=== PATIENT | female | born 2000 | race African-American/Black ===

== ENCOUNTER 2022-01-18 18:51 | Emergency (ER) | payer SELFPAY ==
[2022-01-18 18:57] VITALS: BP 124/86; PULSE 96; RESP 20; TEMP 36.3; O2SAT 100
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
--- NOTE | 2022-01-18 19:20 | ECG_ITS ---
Measurements Intervals [place] Rate: 95 P: 72 PA: 129 QRS: 50 QRSD: 81 T: 37 QT: 332 QTc: 417 Interpretive Statements SINUS RHYTHM NO PREVIOUS ECG AVAILABLE FOR COMPARISON Electronically Signed On 01-18-2022 20:00:46 CDT by Britany Cordero M.D.
[2022-01-18 19:53] LABS: Basophils Absolute Auto 0.1 K/mm3 (0.0-0.1); Basophils Percent Auto 0.7 % (0.2-1.2); Eosinophils Percent Auto 0.6 % (0-4.4); Hematocrit 30.6 % (37.0-47.0); Hemoglobin 9.7 g/dL (12.0-15.0); Immature Granulocyte Absolute 0.01 K/mm3 (0.00-0.031); Immature Granulocyte Percent A 0.1 % (0-0.5); Lymphocytes Percent Auto 29.6 % (18.3-44.2); Mean Corpuscular HGB Conc 31.7 g/dl (32-36); Mean Corpuscular Hemoglobin 20.5 pg (26-34); Mean Corpuscular Volume 64.7 fl (80-100); Mean Platelet Volume 9.6 fl (7.4-10.4); Monocytes Absolute Auto 0.5 K/mm3 (0.1-0.6); Monocytes Percent Auto 7.7 % (2.6-8.5); Neutrophils Absolute Auto 4.1 K/mm3 (1.3-6.7); Neutrophils Percent Auto 61.3 % (45.5-73.1); Platelet Count Result 388 k/mm3 (150-375); Red Blood Count 4.73 M/mm3 (4.2-5.4); Red Cell Distribution Width 17.7 % (11.5-14.5); White Blood Count 6.8 K/mm3 (4.5-10.0)
[2022-01-18 19:59] LABS: Add Urine Microscopic? YES; Appearance Urine Cloudy (Clear); Bacteria Urine Trace /hpf; Bilirubin Urine Negative (Negative); Blood Urine 1+ (Negative); Color Urine Yellow (Yellow); Glucose Urine UA Negative (Negative); Ketones Urine Negative (Negative); Leukocyte Esterase Ur Negative LEU/UL (Negative); Mucus Urine Rare /lpf; Nitrate Urine Negative (Negative); Protein Urine Negative (Negative); RBC Urine 0-2 /hpf (0-2); Specific Grav Ur 1.019 (1.001-1.035); Squamous Epithelial Cell Urine Many /hpf (Few); Urobilinogen Urine Negative mg/dL (<2.0); WBC Urine 0-3 /hpf
[2022-01-18 20:06] LABS: Acetaminophen < 10 ug/mL (10-30); Ethanol 36 mg/dL (<10); Salicylate < 1.0 mg/dL (2-20)
[2022-01-18 20:07] LABS: Anion Gap 11 mmol/L (8-16); Blood Urea Nitrogen 8 mg/dL (7-17); Calcium 8.8 mg/dL (8.4-10.2); Carbon Dioxide 24 mmol/L (22-30); Chloride 107 mmol/L (98-107); Estimated CRCL calculation 111 ml/min; Estimated Glomerular Filt Rate > 60; Glucose 105 mg/dL (65-110); Potassium 3.6 mmol/L (3.4-5.0); Sodium 142 mmol/L (137-145)
[2022-01-18 20:08] LABS: Anisocytosis 2+ (NORMAL); Hypochromasia 1+ (NORMAL)
[2022-01-18 20:09] LABS: Schistocytes None Seen (NORMAL)
[2022-01-18 20:12] LABS: Amphetamine Screen Urine Negative (Negative); Barbiturate Screen Urine Negative (Negative); Benzodiazepines Screen Urine Negative (Negative); Cannabinoid Screen Urine Negative (Negative); Cocaine Screen Urine Negative (Negative); Methadone Screen Urine Negative (Negative); Opiate Screen Urine Negative (Negative); Phencyclidine Screen Urine Negative (Negative)
[2022-01-18 20:31] LABS: SARS-CoV-2 RNA PCR Negative
--- NOTE | 2022-01-18 21:28 | PC.NURSE ---
Crisis called at this time and spoke with Linda. She reported that counselor will be out and itll be soon.
--- NOTE | 2022-01-18 21:31 | PC.NURSE ---
Alondra Cox called back and reported to called [facility] since its [facility] confirmed number and will call [facility] [phone]
--- NOTE | 2022-01-18 21:59 | PC.NURSE ---
PERNELL called at this time.
--- NOTE | 2022-01-18 22:33 | PC.NURSE ---
Pau, with [facility], called with ETA of 30 minutes.
--- NOTE | 2022-01-18 23:22 | PC.NURSE ---
Crisis counselor at bedside at this time.
[2022-01-19 00:11] VITALS: BP 121/83; PULSE 85; RESP 16; TEMP 36.7; O2SAT 100
== END 2022-01-19 00:12 | disposition home or self-care (01) ==
PROVIDERS: Emergency Provider Emergency Medicine
DX: F32.A Depression, unspecified (principal); T71.162A Asphyxiation due to hanging, intentional self-harm, initial encounter; Z20.822 Contact with and (suspected) exposure to COVID-19
CPT/HCPCS: 36415; 80048; 80307; 81001; 81025; 84443; 85025; 93005; 99284; C9803; U0003; U0005

== ENCOUNTER 2024-10-25 17:00 | Emergency (ER) | payer SELFPAY ==
--- OUTSIDE RECORDS SUMMARY | 2024-10-25 17:02 | XMS_ITS | Clinical Summary ---
Author Organization [facility] Address [address] [place] [address] Care Team Providers Care Watch Dial Maker Name Role Phone Pcp, Miguel Ray Im-Fm Primary Care Provider Unavailable Source Comments [facility],non-owned Affiliates and Associated Physician Practices is amultiple site organization consisting of ambulatory clinics and hospital sitesin [place], [place], [place] and [place]. This disclosure is being madepursuant to the Care Everywhere program and may not contain all information available regarding this patient. Last updated 17.[facility] [employer] Allergies No known active allergies Medications * Be aware that medications may not be up to date on this document. Alwaysverify current medications with the patient. fluticasone propionate (FLONASE) 50 MCG/ACT nasal sprayIndications :Acute sinusitis, recurrence not specified, unspecified location [place] 2 sprays into each nostril once daily 1 g 06/18/2019 Active Active Problems No known active problems Immunizations Immunization Administration Dates Next Due MENINGOCOCCAL ACWY (MCV4P) VAC IM 01/07/2019 Family History Medical History Relation Name Comments CAD (Coronary Artery Disease) Maternal Grandfather [place] at 38 Relation Name Status Comments Maternal Grandfather Social History Tobacco Use Types Packs/Day Years Used Date Smoking Tobacco: Never Smokeless Tobacco: Never Comments:non smoking househo ld Alcohol Use Standard Drinks/Week Comments Never 0 (1 standard drink = 0.6 oz pur e alcohol) AUDIT-C Answer Date Recorded Frequency of Alcohol Consumption Never 02/03/2019 Average Number of Drinks Not on file 019 Frequency of Binge Drinking Not on file 01/08 Comments No Sex and Gender Information Value Date Recorded Sex Assigned at Not on file Legal Sex Female 9:44 AM CDT Gender Identity Not on file Sexual Orientation Not on file Last Filed Vital Signs Vital Sign Reading Time Taken Comments Blood Pressure 118/82 06/18/2019 12:01 PM CDT Pulse 96 06/18/2019 12:01 PM CDT Temperature 36.8 C (98.2 F) 06/18/2019 12:01 PM CDT Respiratory Rate 16 06/18/2019 12:01 PM CDT Oxygen Saturation 99% 06/18/2019 12:01 PM CDT Inhaled Oxygen Concentration - - Weight 55.3 kg (122 lb) 06/18/2019 12:01 PM CDT Height 174 cm (5' 8.5) 06/18/2019 12:01 PM CDT Body Mass Index 18.28 06/18/2019 12:01 PM CDT Plan of Treatment Health Maintenance Due Date Last Done Comments HIV SCREENING 2016 HPV VACCINE (1 - 3-dose series) 2016 CHLAMYDIA/GONORRHEA SCREENING 2017 MENINGOCOCCAL (Group B) VACC INE SHARED DECISION-MAKING (1 of 2 - Standard) 2017 HEPATITIS C SCREENING 02/25/2019 DTAP/TDAP/TD VACCINES (1 - Tdap) 2020 HEPATITIS B VACCINE (1 of 3 - 19+ 3-dose series) 2020 COVID-19 VACCINE (1 - 2023-2 5 season) 2023 DEPRESSION SCREENING 04/09/2024 INFLUENZA VACCINE (#1) 2024 ZOSTER VACCINE (1 of 2) 2051 MENINGOCOCCAL GROUPS A/C/Y/W VACCINE Completed 01/07/2019 HIB VACCINE Aged Out No longer eligi ble based on patient's age to complete this topic PNEUMOCOCCAL VACCINE Aged Out No long er eligible based on patient's age to complete this topic Insurance [employer] [facility] [facility] [facility] Care Teams Watch Dial Maker Relationship Specialty Start Date End Date PcpMiguel PCP - General 11/03/22
[2024-10-25 17:48] VITALS: BP 135/89; PULSE 82; RESP 20; TEMP 36.5; O2SAT 100
--- NOTE | 2024-10-25 18:15 | PC.NURSE ---
Pt. alerted this RN that she would like to leave before seeing a doctor. Pt. A&Ox4, ambulatory with a steady gait.
--- OUTSIDE RECORDS SUMMARY | 2024-10-25 18:19 | XMS_ITS | Clinical Summary ---
Author Organization [facility] Address [address] [place] [address] Care Team Providers Care Field Irrigation Worker Name Role Phone Pcp, Miguel Ray Im-Fm Primary Care Provider Unavailable Source Comments [facility],non-owned Affiliates and Associated Physician Practices is amultiple site organization consisting of ambulatory clinics and hospital sitesin [place], [place], [place] and [place]. This disclosure is being madepursuant to the Care Everywhere program and may not contain all information available regarding this patient. Last updated 17.[facility] [employer] Allergies No known active allergies Medications * Be aware that medications may not be up to date on this document. Alwaysverify current medications with the patient. fluticasone propionate (FLONASE) 50 MCG/ACT nasal sprayIndications :Acute sinusitis, recurrence not specified, unspecified location [place] 2 sprays into each nostril once daily 1 g 06/18/2019 Active Active Problems No known active problems Immunizations Immunization Administration Dates Next Due MENINGOCOCCAL ACWY (MCV4P) VAC IM 01/07/2019 Family History Medical History Relation Name Comments CAD (Coronary Artery Disease) Maternal Grandfather [place] at 38 Relation Name Status Comments Maternal [...] HEALTH CARE CARE HEALTH CARE Care Teams Field Irrigation Worker Relationship Specialty Start Date End Date PcpMiguel PCP - General 11/03/22
== END 2024-10-25 18:19 | disposition left against medical advice (07) ==
DX: R51.9 Headache, unspecified (principal)
CPT/HCPCS: 99199